=== PATIENT | male | born 1995 | race Caucasian/White ===

== ENCOUNTER 2020-11-16 19:24 | Emergency (ER) | payer SELFPAY ==
[2020-11-16] MEDS ORDERED: AUGMENTIN 875-1 EACH PO (21:23)
== END 2020-11-16 21:35 | disposition home or self-care (01) ==
LOC: ER1 19:24
DX: S51.852A Open bite of left forearm, initial encounter (principal); W54.0XXA Bitten by dog, initial encounter
CPT/HCPCS: 12002; 99283